=== PATIENT | female | born 1995 | race Caucasian/White ===

== ENCOUNTER 2021-10-08 15:58 | Outpatient (CLI) | payer OTHER | END 2021-10-08 17:46 | disposition home or self-care (01) | LOC: NST 15:58 | PROVIDERS: ATTEND Obstetrics & Gynecology Maternal & Fetal Medicine | DX: Z34.83 Encounter for supervision of other normal pregnancy, third trimester (principal) ==

== ENCOUNTER 2021-10-12 15:32 | Outpatient (CLI) | payer OTHER | END 2021-10-12 16:37 | disposition home or self-care (01) | LOC: NST 15:32 | PROVIDERS: ATTEND Obstetrics & Gynecology Maternal & Fetal Medicine | DX: Z34.83 Encounter for supervision of other normal pregnancy, third trimester (principal) ==

== ENCOUNTER 2021-10-20 08:39 | Outpatient (CLI) | payer OTHER | END 2021-10-20 11:15 | disposition home or self-care (01) | LOC: NST 08:39 | PROVIDERS: ATTEND Obstetrics & Gynecology Maternal & Fetal Medicine | DX: Z34.83 Encounter for supervision of other normal pregnancy, third trimester (principal) ==

== ENCOUNTER 2021-10-22 21:56 | Inpatient (IN) | payer OTHER ==
[~2021-10-22] VITALS: Ht 157.5 cm; Wt 62.6 kg
[2021-10-22] MEDS ORDERED: PRENATAL TABLE1 EAC3 PO (22:05)
== END 2021-10-25 13:40 | disposition home or self-care (01) | DRG 807 ==
LOC: LDR 21:56 → OB/GYN 21:56 → SURG 10-31 12:42
PROVIDERS: ADMIT Obstetrics & Gynecology Gynecology; ATTEND Obstetrics & Gynecology Gynecology
PROC: 4A1HXCZ Monitoring of Products of Conception, Cardiac Rate, External Approach (ICD-10-PCS; 2021-10-22)
PROC: 10E0XZZ Delivery of Products of Conception, External Approach (ICD-10-PCS; principal; 2021-10-23)
DX: O80 Encounter for full-term uncomplicated delivery (principal); Z37.0 Single live birth; Z3A.38 38 weeks gestation of pregnancy; Z20.822 Contact with and (suspected) exposure to COVID-19

== ENCOUNTER 2022-10-31 07:39 | Emergency (ER) | payer OTHER ==
[~2022-10-31] VITALS: Ht 160 cm; Wt 52.2 kg
[~2022-10-31 07:39] MED LIST: PRENATAL TABLE1 EAC3 PO
== END 2022-10-31 08:25 | disposition home or self-care (01) ==
LOC: ER 07:39
DX: J98.8 Other specified respiratory disorders (principal)